=== PATIENT | female | born 1960 | race Caucasian/White ===

== ENCOUNTER → 2022-03-16 | Outpatient (CLI) | payer MEDICAID ==
[2022-03-16 07:49] LABS: Eosinophils # (auto) 0.2 10 ^3/uL (0-0.8); Hemoglobin 11.6 g/dL (12.2-16.2); Mean Corpuscular Volume 82.8 fL (80.0-100.0); Neutrophils # (auto) 5.3 10 ^3/uL (1.6-8.6)
[2022-03-16 07:51] LABS: Basophils # (auto) 0 10 ^3/uL (0-0.2); Basophils % (auto) 0.4 % (0.0-2.0); Eosinophils % (auto) 2.4 % (0.0-7.0); Hematocrit 35.5 % (36.0-46.0); Lymphocytes # (auto) 2.1 10 ^3/uL (0.4-5.4); Lymphocytes % (auto) 25.4 % (10.0-50.0); Mean Corpuscular Hgb Conc. 32.6 g/dL (32.0-36.0); Monocytes # (auto) 0.6 10 ^3/uL (0-1.3); Monocytes % (auto) 7.7 % (0.0-12.0); Neutrophils % (auto) 64.1 % (37.0-80.0); Red Blood Cells 4.28 10^6/uL (4.0-5.20); Red Cell Distribution Width 17.2 % (11.8-14.3); White Blood Cell 8.2 10^3/uL (4.4-10.8)
[2022-03-16 08:31] LABS: Albumin 3.9 g/dL (3.4-5.0); Calcium 9.2 mg/dL (8.5-10.1); Potassium 4.5 mmol/L (3.5-5.1)
[2022-03-16 08:38] LABS: BUN/Creatinine Ratio 19.7; Bilirubin, Total 0.6 mg/dL (0.2-1.0)
[2022-03-16 10:26] LABS: Free T4 (Free Thyroxine) 0.83 ng/dL (0.89-1.76)
== END | disposition home or self-care (01) ==
LOC: LAB 07:23
PROVIDERS: ATTEND Nurse Practitioner Family
DX: Z00.00 Encounter for general adult medical examination without abnormal findings (principal); E03.9 Hypothyroidism, unspecified; I10 Essential (primary) hypertension
CPT/HCPCS: 36415; 80053; 80061; 82306; 82607; 84439; 84443; 85025

== ENCOUNTER 2022-10-13 12:37 | Emergency (ER) | payer MEDICAID ==
[~2022-10-13] VITALS: Ht 157.5 cm; Wt 62.0 kg
[2022-10-13 13:18] VITALS: BP 157/67
[2022-10-13] MEDS ORDERED: cefTRIAXone 1GM/50ML D5W 50 ML IV ONE (13:45)
[2022-10-13] MEDS ORDERED: KETOROLAC TROMETH 30 MG/ML 1ML VIAL IV ONE (13:45)
[2022-10-13 14:02] LABS: Basophils # (auto) 0.1 10 ^3/uL (0-0.2); Basophils % (auto) 1.3 % (0.0-2.0); Eosinophils # (auto) 0 10 ^3/uL (0-0.8); Eosinophils % (auto) 0.2 % (0.0-7.0); Hemoglobin 11.5 g/dL (12.2-16.2); Lymphocytes # (auto) 2.3 10 ^3/uL (0.4-5.4); Lymphocytes % (auto) 20.7 % (10.0-50.0); Mean Corpuscular Hemoglobin 29.4 pg (28.0-32.0); Mean Corpuscular Hgb Conc. 32.8 g/dL (32.0-36.0); Mean Corpuscular Volume 89.7 fL (80.0-100.0); Monocytes # (auto) 1.1 10 ^3/uL (0-1.3); Monocytes % (auto) 9.9 % (0.0-12.0); Neutrophils # (auto) 7.5 10 ^3/uL (1.6-8.6); Neutrophils % (auto) 67.9 % (37.0-80.0); Nucleated Red Blood Cells % 0.1 %; Red Blood Cells 3.91 10^6/uL (4.0-5.20); Red Cell Distribution Width 18.3 % (11.8-14.3); White Blood Cell 11.1 10^3/uL (4.4-10.8)
[2022-10-13] MEDS ORDERED: NAPR500T31 PO (14:04)
[2022-10-13] MEDS ORDERED: CEPH-510 PO (14:04)
[2022-10-13 14:28] LABS: Calcium 8.4 mg/dL (8.5-10.1); Potassium 3.6 mmol/L (3.5-5.1)
[2022-10-13 14:30] LABS: BUN/Creatinine Ratio 13.6 (10.0-20.0)
== END 2022-10-13 14:33 | disposition home or self-care (01) ==
LOC: ER 12:37
DX: S50.812A Abrasion of left forearm, initial encounter (principal); L08.9 Local infection of the skin and subcutaneous tissue, unspecified; I10 Essential (primary) hypertension; E03.9 Hypothyroidism, unspecified; Z79.899 Other long term (current) drug therapy; Z88.0 Allergy status to penicillin; X58.XXXA Exposure to other specified factors, initial encounter; Y93.89 Activity, other specified; Y92.89 Other specified places as the place of occurrence of the external cause; Y99.8 Other external cause status
CPT/HCPCS: 36415; 80048; 83605; 85025; 96365; 96375; 99284; J0696; J1885

== ENCOUNTER 2022-10-19 08:46 | Emergency (ER) | payer MEDICAID ==
[~2022-10-19] VITALS: Ht 157.5 cm; Wt 61.2 kg
[~2022-10-19 08:46] MED LIST: CEPH-510 PO; NAPR500T31 PO
[2022-10-19 09:40] LABS: Basophils # (auto) 0.1 10 ^3/uL (0-0.2); Basophils % (auto) 0.9 % (0.0-2.0); Eosinophils # (auto) 0.1 10 ^3/uL (0-0.8); Eosinophils % (auto) 0.7 % (0.0-7.0); Hematocrit 37.9 % (36.0-46.0); Hemoglobin 12.5 g/dL (12.2-16.2); Lymphocytes # (auto) 1.8 10 ^3/uL (0.4-5.4); Mean Corpuscular Hgb Conc. 32.9 g/dL (32.0-36.0); Mean Corpuscular Volume 91.2 fL (80.0-100.0); Monocytes # (auto) 0.7 10 ^3/uL (0-1.3); Monocytes % (auto) 8.3 % (0.0-12.0); Neutrophils # (auto) 5.4 10 ^3/uL (1.6-8.6); Neutrophils % (auto) 68.1 % (37.0-80.0); Red Blood Cells 4.15 10^6/uL (4.0-5.20); Red Cell Distribution Width 18.6 % (11.8-14.3)
[2022-10-19 09:50] LABS: Urine Bacteria NONE SEEN /hpf (None Seen); Urine Blood 2+ /uL (Negative); Urine Hyaline Cast MOD /lpf (0 - 2); Urine Mucus FEW (None Seen); Urine Specific Gravity 1.025 (1.001-1.035); Urine WBC 36 /hpf (0 - 5)
[2022-10-19 10:11] LABS: Albumin 3.6 g/dL (3.4-5.0); Calcium 8.2 mg/dL (8.5-10.1); Potassium 4.2 mmol/L (3.5-5.1)
[2022-10-19 10:15] LABS: BUN/Creatinine Ratio 16.4 (10.0-20.0); Bilirubin, Total 0.4 mg/dL (0.2-1.0); Total Protein 7.4 g/dL (6.4-8.2)
[2022-10-19 10:21] LABS: Amphetamine Screen, Urine NEGATIVE (NEGATIVE); Barbiturate Scree,Urine NEGATIVE (NEGATIVE); Benzodiazephine Screen, Urine POSITIVE (NEGATIVE); Cannabinoid Screen, Urine NEGATIVE (NEGATIVE); Cocaine Screen, Urine NEGATIVE (NEGATIVE); Opiate Scree,Urine NEGATIVE (NEGATIVE); Phencyclidine Screen, Urine NEGATIVE (NEGATIVE)
[2022-10-19] MEDS ORDERED: chlordiazePOXIDE HCL 25 MG CAP PO ONE (11:00)
[2022-10-19] MEDS ORDERED: LORazepam 2MG/ML-1ML VIAL IM ONE (11:00)
[2022-10-19] MEDS ORDERED: CHL25C PO (11:27)
[2022-10-19] MEDS ORDERED: FOLIC ACID 1 MG TAB PO ONE (11:30)
[2022-10-19] MEDS ORDERED: THIAMINE HCL 100 MG TAB PO ONE (11:30)
[2022-10-19 12:12] VITALS: BP 169/100
== END 2022-10-19 12:16 | disposition home or self-care (01) ==
LOC: ER 08:46
DX: F10.20 Alcohol dependence, uncomplicated (principal); I10 Essential (primary) hypertension; Z88.0 Allergy status to penicillin; Z88.6 Allergy status to analgesic agent; Y90.8 Blood alcohol level of 240 mg/100 ml or more
CPT/HCPCS: 36415; 80053; 80307; 80320; 81001; 85025; 96372; 99284; J2060

== ENCOUNTER 2024-09-06 18:52 | Emergency (ER) | payer MEDICAID ==
[~2024-09-06] VITALS: Ht 162.6 cm; Wt 60.0 kg
[~2024-09-06 18:52] MED LIST changes: +CHL25C PO; +NAPR-746 PO; -NAPR500T31 PO
--- NOTE | 2024-09-06 19:02 | ED.PDOC ---
History of Present Illness HPI Comments 64-year-old female with PMHx HTN brought in by EMS presents s/p alcohol intoxication. Patient drinks roughly a pint a day according to EMS. A good hinduism called EMS because patient was wobbly on her feet walking in and out of traffic. Patient states that her body hurts from falling and has bruising to her face. Patient denies any other complaints at this time and is requesting food. Time Seen by MD: 18:58 Primary Care Provider: JOB Reviewed Notes: Medications, Allergies Allergies: Coded Allergies: Penicillins (Verified Allergy, Unknown, 10/13/22) Home Meds Active Scripts Chlordiazepoxide Hcl (Librium) 25 Mg Cp, 25 MG PO Q6HR for 2 Days, #8 CAP Librium taper, for day 2 and day 3 Prov:VAZQUEZ DONAHUE MD 10/19/22 Chlordiazepoxide Hcl (Librium) 25 Mg Cp, 50 MG PO Q6HR for 1 Day, #8 CAP Librium taper, for day 1 Prov:VAZQUEZ DONAHUE MD 10/19/22 Naproxen (Naproxen) 500 Mg Tab, 500 MG PO BID, #30 TAB Prov:LELAND KEATING 10/13/22 Cephalexin ( Keflex 500) 500 Mg Cap, 1 CAP PO TID, #30 CAP Prov:LELAND KEATING 10/13/22 Information Source: Patient, Emergency Med Personnel Mode of Arrival: EMS Severity: Moderate Timing: Minutes Duration: Since onset Prehospital treatment: None Past Medical History PAST MEDICAL HISTORY: HTN, Thyroid Surgical History: Denies all surgeries DIRECT CARE PROVIDER History: Denies all DIRECT CARE PROVIDER Hx Family History Family History: Reviewed,noncontributory to illness Social History Smoker: Non-Smoker Alcohol: Denies ETOH Use Drugs: Denies Drug Use Lives In: Home Constitutional: denies: chills, diaphoresis, fatigue, fever, malaise, sweats, weakness, others EENTM: denies: blurred vision, double vision, ear bleeding, ear discharge, ear drainage, ear pain, ear ringing, eye pain, eye redness, hearing loss, mouth pain, mouth swelling, nasal discharge, nose bleeding, nose congestion, nose pain, photophobia, tearing, throat pain, throat swelling, voice changes, others Respiratory: denies: cough, hemoptysis, orthopnea, SOB at rest, shortness of breath, SOB with excertion, stridor, wheezing, others Cardiovascular: denies: chest pain, dizzy spells, diaphoresis, Dyspnea on exertion, edema, irregular heart beat, left arm pain, lightheadedness, palpitations, PND, syncope, others Gastrointestinal: denies: abdomen distended, abdominal pain, blood streaked bowels, constipated, diarrhea, dysphagia, difficulty swallowing, hematemesis, m kevin, nausea, poor appetite, poor fluid intake, rectal bleeding, rectal pain, vomiting, others Genitourinary: denies: abnormal vagina bleeding, burning, dyspareunia, dysuria, flank pain, frequency, hematuria, incontinence, pain, , vagina discharge, urgency, others Neurological: denies: dizziness, fainting, headache, left sided numbness, left sided weakness, numbness, paresthesia, pre-existing deficit, right sided numbness, right sided weakness, seizure, speech problems, tingling, tremors, weakness, others Musculoskeletal: reports: muscle pain; denies: back pain, gout, joint pain, joint swelling, muscle stiffness, neck pain, others Integumetry: reports: bruises; denies: change in color, change in hair/nails, dryness, laceration, lesions, lumps, rash, wounds, others Allergic/Immunocompromised: denies: Difficulty Healing, Frequent Infections, Hives, Itching, others Hematologic/Lymphatic: denies: anemia, blood clots, easy bleeding, easy bruising, swollen glands, others Endocrine: denies: excessive hunger, excessive sweating, excessive thirst, excessive urination, flushing, intolerance to cold, intolerance to heat, unexplained weight gain, unexplained weight loss, others Psychiatric: denies: anxiety, bipolar disorder, depression, hopeless, panic disorder, schizophrenia, sleepless, suicidal, others All Other Systems: Reviewed and Negative Physical Exam General Appearance: No Apparent Distress, Normal HEENT: Normal ENT Inspection, Pharynx Normal, TMs Normal Neck: Full Range of Motion, Non-Tender, Normal, Normal Inspection Respiratory: Chest Non-Tender, Lungs Clear, No Accessory Muscle Use, No Respiratory Distress, Normal Breath Sounds Cardiovascular: No Edema, No JVD, No Murmur, No Gallop, Normal Peripheral Pulses, Regular Rate/Rhythm Breast Exam: Deferred Gastrointestinal: No Organomegaly, Non Tender, No Pulsatile Mass, Normal Bowel Sounds, Soft Genitalia: Deferred Pelvic: Deferred Rectal: Deferred Extremities: No calf tenderness, Normal capillary refill, Normal inspection, Normal range of motion, Non-tender, No pedal edema Musculoskeletal : Apperance: Normal Neurologic: Alert, engineering program manager II-XII nml as Tested, No Motor Deficits, Normal Affect, Normal Mood, No Sensory Deficits Cerebellar Function: Normal Reflexes: Normal Skin: Dry, Normal Color, Warm Lymphatic: No Adenopathy Was a procedure done? Was a procedure done?: No Differential Dx Considerations may include: Differential diagnosis includes but is not limited to: coronary ischemia, dehydration, sepsis, electrolyte abnormality, symptomatic anemia, hypovolemia and others X-Ray, Labs, Meds, VS Vital Signs Date Time Temp Pulse Resp B/P (MAP) Pulse Ox O2 Delivery O2 Flow Rate FiO2 09/06/24 19:25 83 19 95 Room Air* 0 21 09/06/24 19:25 98.7 83 19 159/72 (101) 95 98.7 09/06/24 19:02 97.9 90 18 140/94 (109) 97 97.9 Lab Test 09/06/24 21:25 09/06/24 19:31 Range/Units White Blood Count 10.0 4.4-10.8 10^3/uL Red Blood Count 3.87 L 4.0-5.20 10^6/uL Hemoglobin 12.0 L 12.2-16.2 g/dL Hematocrit 36.5 36.0-46.0 % Mean Corpuscular Volume 94.3 80.0-100.0 fL Mean Corpuscular Hemoglobin 31.0 28.0-32.0 pg Mean Corpuscular Hemoglobin Concent 32.8 32.0-36.0 g/dL Red Cell Distribution Width 18.4 H 11.8-14.3 % Platelet Count 277 140-450 10^3/uL Mean Platelet Volume 8.1 6.9-10.8 fL Neutrophils (%) (Auto) 62.9 37.0-80.0 % Lymphocytes (%) (Auto) 30.7 10.0-50.0 % Monocytes (%) (Auto) 5.3 0.0-12.0 % Eosinophils (%) (Auto) 0.4 0.0-7.0 % Basophils (%) (Auto) 0.7 0.0-2.0 % Neutrophils # (Auto) 6.3 1.6-8.6 10 ^3/uL Lymphocytes # (Auto) 3.1 0.4-5.4 10 ^3/uL Monocytes # (Auto) 0.5 0-1.3 10 ^3/uL Eosinophils # (Auto) 0 0-0.8 10 ^3/uL Basophils # (Auto) 0.1 0-0.2 10 ^3/uL Nucleated Red Blood Cells 0.1 % Sodium Level 136 136-145 mmol/L Potassium Level 3.0 L 3.5-5.1 mmol/L Chloride Level 99 98-107 mmol/L Carbon Dioxide Level 25 20-31 mmol/L Anion Gap 12 5-15 Blood Urea Nitrogen 11 9-23 mg/dL Creatinine 0.60 0.550-1.02 mg/dL Glomerular Filtration Rate Calc 100 >90 mL/min BUN/Creatinine Ratio 18.3 10.0-20.0 Serum Glucose 107 H 74-106 mg/dL Calcium Level 9.4 8.7-10.4 mg/dL Total Bilirubin 1.0 0.2-1.0 mg/dL Aspartate Amino Transferase (AST) 68 H 13-40 U/L Alanine Aminotransferase (ALT) 35 7-40 U/L Alkaline Phosphatase 72 46-116 U/L Total Protein 7.2 5.7-8.2 g/dL Albumin 4.4 3.2-4.8 g/dL Plasma/Serum Blood Alcohol 279.8 H <10 mg/dL POC Glucose 97 70-106 mg/dl Time of 1ST Reevaluation: 19:28 Reevaluation 1ST: Unchanged Patient Education/Counseling: Diagnosis, Treatment, Prognosis Family Education/Counseling: No Family Present Departure 1 Departure Time of Disposition: 23:27 Impression: Primary Impression: Alcohol abuse Additional Impression: Alcohol use disorder Disposition: 01 HOME / SELF CARE / HOMELESS Condition: Stable Discharged With: Self Critical Care Note Critical Care Time?: No Stability Stability form required: No Heart Score Heart Score: Heart Score Response (Comments) Value History N/A 0 EKG N/A 0 Age N/A 0 Risk Factors N/A 0 Troponin N/A 0 Total 0 I personally scribed for PATTIE VENTURA MD ([email or web address]) on 09/06/24 at 19:02. Electronically submitted by Ja Gonzalez ([email or web address]). PATTIE VENTURA MD Sep 06, 2024 19:02
[2024-09-06 19:25] VITALS: PULSE 83; RESP 19; O2SAT 95
[2024-09-06 21:48] LABS: Basophils # (auto) 0.1 10 ^3/uL (0-0.2); Basophils % (auto) 0.7 % (0.0-2.0); Eosinophils # (auto) 0 10 ^3/uL (0-0.8); Eosinophils % (auto) 0.4 % (0.0-7.0); Hematocrit 36.5 % (36.0-46.0); Lymphocytes # (auto) 3.1 10 ^3/uL (0.4-5.4); Lymphocytes % (auto) 30.7 % (10.0-50.0); Mean Corpuscular Hgb Conc. 32.8 g/dL (32.0-36.0); Mean Corpuscular Volume 94.3 fL (80.0-100.0); Monocytes # (auto) 0.5 10 ^3/uL (0-1.3); Monocytes % (auto) 5.3 % (0.0-12.0); Neutrophils # (auto) 6.3 10 ^3/uL (1.6-8.6); Neutrophils % (auto) 62.9 % (37.0-80.0); Nucleated Red Blood Cells % 0.1 %; Platelet Count (auto) 277 10^3/uL (140-450); Red Blood Cells 3.87 10^6/uL (4.0-5.20); Red Cell Distribution Width 18.4 % (11.8-14.3)
[2024-09-06 22:08] LABS: Alanine Aminotransferase 35 U/L (7-40); Albumin 4.4 g/dL (3.2-4.8); Alkaline Phosphatase 72 U/L (46-116); Anion Gap 12 (5-15); Aspartate Aminotransferase 68 U/L (13-40); BUN/Creatinine Ratio 18.3 (10.0-20.0); Blood Alcohol 279.8 mg/dL (<10); Blood Urea Nitrogen 11 mg/dL (9-23); Calcium 9.4 mg/dL (8.7-10.4); Carbon Dioxide 25 mmol/L (20-31); Chloride 99 mmol/L (98-107); Glucose 107 mg/dL (74-106); Sodium 136 mmol/L (136-145); Total Protein 7.2 g/dL (5.7-8.2)
[2024-09-07] MEDS: POTASSIUM CHL 20 Meq TABLET PO ONE (01:04)
[2024-09-07] MEDS: levETIRAcetam 1000 mg/100ml 100 ML IV ONE (03:45)
[2024-09-07] MEDS: LORazepam 2MG/ML-1ML VIAL IV ONE (03:45)
[2024-09-07] MEDS: SODIUM CHLORIDE 0.9% 1,000 ML IV ONE (04:00)
[2024-09-07 04:35] LABS: INR 0.97 (0.9-1.15); Partial Thromboplastin Time 26.8 SEC (24.5-34.5); Prothrombin Time 10.3 sec (9.3-11.8)
[2024-09-07] MEDS: hydrALAZINE HCL 20 MG/ML VL IV ONE (04:56)
--- NOTE | 2024-09-07 05:17 | DVH ---
EXAM: CT HEAD WITHOUT CONTRAST INDICATION: seizure, head injury TECHNIQUE: CT of the head without intravenous contrast. Radiation Dose : 1. Head: CT Dose: CTDI volume is 53.4 mGy. Dose-length product is 944.36 mGy*cm The dose indicators for CT are the volume Computed Tomography (CT) Dose Index (CTDIvol) and the Dose Length Product (DLP), and are measured in units of mGy and mGy-cm, respectively. These indicators are not patient dose, but values generated from the CT scanner acquisition factors. The report includes radiation exposure data for exposures received during this examination. COMPARISON: None FINDINGS: Right hemispheric extra-axial hyperdense mixed attenuation material consistent with acute subdural he matoma measures up to 1.3 cm in width and is associated with right hemispheric mass effect, moderate sulcal effacement and shift of the midline structures from right to left by approximately 6 mm. The ventricles, sulci and cisterns are otherwise age appropriate. The parikh-white differentiation is intact. Mild diffuse confluent periventricular and subcortical white matter hypoattenuation is nonspecific bu t may be related to small vessel ischemic disease. The visualized paranasal sinuses and mastoid air cells are clear. Moderate right posterior parietal scalp soft tissue swelling and edema. Focal right periorbital hemat osiris measuring 1.4 cm external to the globe and orbit. No definite fracture, however, there is motion artifact affecting the images of the skull base which may obscure detail. IMPRESSION: 1. Moderate acute right subdural hematoma with associated right hemispheric mass effect, sulcal effac ement and right to left midline shift. 2. Right posterior parietal scalp soft tissue swelling and edema and focal right periorbital hematoma . 3. Findings discussed with and acknowledged by Dr. Chauhan of the emergency department at 5:10 a.m. On September 07, 2024. Radiation optimization: All CT scans at this facility use at least one of these dose optimization elsa hniques: automated exposure control mA and/or kV adjustment per patient size (includes targeted exam s where dose is matched to clinical indication) or iterative reconstruction.
[2024-09-07 06:12] VITALS: BP 156/132; PULSE 108; RESP 20; TEMP 99.4; O2SAT 97
--- NOTE | 2024-09-08 07:24 | ECG ---
[facility] Test Date: 2024-09-07 Test Time: 04:01:19 Pat Name: LASHONDA ACUNA Department: ER Room: Gender: F Gas Load Dispatcher: NENO : [id number] Requested By: PATTIE VENTURA Order Number: [id number] Reading MD: Marvin Bone Measurements Intervals [place] Rate: 115 P: 85 ME: 145 QRS: 84 QRSD: 99 T: -85 QT: 321 QTc: 444 Interpretive Statements Sinus tachycardia Borderline right axis deviation Probable LVH with secondary repol abnrm Anterolateral infarct, age indeterminate Baseline wander in lead(s) I,III,aVL,V5 Electronically Signed On 09-10-2024 14:18:46 PDT by Marvin Bone Please click the below link to view image of tracing.
== END 2024-09-07 06:20 | disposition short-term general hospital (02) ==
LOC: EDBD 18:52 → ER 18:57
DX: S00.83XA Contusion of other part of head, initial encounter (principal); F10.129 Alcohol abuse with intoxication, unspecified; I10 Essential (primary) hypertension; E87.6 Hypokalemia; E03.9 Hypothyroidism, unspecified; Z88.0 Allergy status to penicillin; Y90.8 Blood alcohol level of 240 mg/100 ml or more; W18.39XA Other fall on same level, initial encounter; Y93.89 Activity, other specified; Y92.89 Other specified places as the place of occurrence of the external cause; Y99.8 Other external cause status
CPT/HCPCS: 36415; 70450; 80053; 80320; 82140; 82947; 85025; 85610; 85730; 93005; 96361; 96374; 96375; 99285; J0360; J1953; J2060; J7030; 82962